=== PATIENT | male | born 1965 | race Caucasian/White ===

== ENCOUNTER 2016-09-04 12:53 | Inpatient (IN) | payer MEDICARE, MEDICAID ==
[~2016-09-04] VITALS: Ht 170.2 cm; Wt 102.0 kg
[~2016-09-04 12:53] MED LIST: ADV250 IH; ALBU8HFA IH; BENZ1TAB10 PO; BUDE10.2 IH; BUPR75TA3 PO; CLOZ100 PO; DOCU250C91 PO; FLUP5 PO; LORA-192 PO; METO-323 PO; PALI234D IM; PANT40TA25 PO; SIMV20TA6 PO
[2016-09-04 14:51] VITALS: BP 128/71
[2016-09-04] MEDS ORDERED: HALOPERIDOL 5 MG TABLET PO PRN (15:15)
[2016-09-04] MEDS ORDERED: INFLUENZA VIRUS VACCINE QVS 2016-17 (3YR+)/PF 60 MCG/0.5 ML SYRINGE IM ONE (15:30)
[2016-09-04] MEDS ORDERED: ALBUTEROL SULFATE HFA 90 MCG/PUFF 8 GM INHALER IH PRN (15:45)
[2016-09-04] MEDS ORDERED: GEMF600T3 PO (15:49)
[2016-09-04] MEDS ORDERED: ZOLP10 PO (15:49)
[2016-09-04] MEDS ORDERED: ACET650T9 PO (15:52)
[2016-09-04] MEDS ORDERED: BUPR-93 PO (15:59)
[2016-09-04] MEDS ORDERED: PNEUMOCOCCAL VACCINE POLYVALENT 0.5 ML VIAL [PPSV23] IM ONE (16:00)
[2016-09-04 16:37] VITALS: BP 117/76
[2016-09-04] MEDS: DOCUSATE SODIUM 250 MG CAPSULE PO SCH (16:50)
[2016-09-04] MEDS: BENZTROPINE MESYLATE 1 MG TABLET PO SCH (16:50)
[2016-09-04] MEDS: PERPHENAZINE 4 MG TABLET PO SCH (16:51)
[2016-09-04] MEDS ORDERED: BUDESONIDE/FORMOTEROL FUMARATE 160-4.5 MCG/PUFF 6.9 GM INHALER IH SCH (17:00)
[2016-09-04] MEDS: SIMVASTATIN 20 MG TABLET PO SCH (20:31)
[2016-09-05 05:53] VITALS: BP 120/82
[2016-09-05] MEDS: PANTOPRAZOLE SODIUM 40 MG DR TABLET PO SCH (06:55)
[2016-09-05 08:20] VITALS: BP_SYST 112; BP_SYST 121; BP_DIAS 66; BP_DIAS 84
[2016-09-05] MEDS: BuPROPion HCL 150 MG SR TABLET PO SCH (08:25)
[2016-09-05] MEDS: BENZTROPINE MESYLATE 1 MG TABLET PO SCH ×2 (08:25→16:41)
[2016-09-05] MEDS: DOCUSATE SODIUM 250 MG CAPSULE PO SCH ×2 (08:25→16:41)
[2016-09-05] MEDS: METOPROLOL SUCCINATE 25 MG ER TABLET PO SCH (08:25)
[2016-09-05] MEDS: PERPHENAZINE 4 MG TABLET PO SCH ×2 (08:26→16:41)
[2016-09-05] MEDS: FLUTICASONE/VILANTEROL 200-25 MCG/INH INHALER [14] IH SCH (08:28)
[2016-09-05 08:49] LABS: BASOPHILS % (AUTO) 0.6 % (0.0-2.0); EOSINOPHILS % (AUTO) 3.5 % (1.0-6.0); HEMATOCRIT 47.3 % (41-53); HEMOGLOBIN 15.5 g/dL (13.5-17.5); LYMPHOCYTES # (AUTO) 1.7 K/uL (1.0-4.8); LYMPHOCYTES % (AUTO) 26.5 % (22.0-44.0); MEAN CORPUSCULAR HEMOGLOBIN 30.2 pg (26.0-34.0); MEAN CORPUSCULAR HGB CONC 32.7 G/dL (31.0-37.0); MEAN CORPUSCULAR VOLUME 92 fL (80-100); MONOCYTES # (AUTO) 0.4 K/uL (0.1-1.0); MONOCYTES % (AUTO) 6.1 % (2.0-9.0); NEUTROPHILS # (AUTO) 4.1 K/uL (1.8-7.7); NEUTROPHILS % (AUTO) 63.3 % (40.0-70.0); PLATELET COUNT (AUTO) 292 K/uL (150-450); RED BLOOD CELL COUNT(AUTO) 5.12 MIL/uL (4.50-5.90); RED CELL DISTRIBUTION WIDTH 12.5 % (11.5-14.5); WHITE BLOOD COUNT (AUTO) 6.4 K/uL (4.5-11.0)
[2016-09-05] MEDS ORDERED: NICOTINE 21 MG/24 HOUR PATCH TD ONE (09:00)
[2016-09-05 09:45] LABS: ALANINE AMINOTRANSFERASE 27 U/L (12-78); ANION GAP 12 mmol/L (8-16); ASPARTATE AMINOTRANSFERASE 13 U/L (15-37); BILIRUBIN,TOTAL 0.3 mg/dL (0.1-1.0); CALCIUM, TOTAL 8.7 mg/dL (8.8-10.5); CARBON DIOXIDE 23 mmol/L (22-29); CHLORIDE 106 mmol/L (98-107); CREATININE 1.07 mg/dL (0.60-1.30); GLOMERULAR FILTR. RATE CALC > 60 mL/min (>60); SODIUM SERUM 141 mmol/L (136-145); TOTAL PROTEIN, SERUM 7.1 g/dL (6.4-8.2); UREA NITROGEN, BLOOD 18 mg/dL (7-18)
[2016-09-05 10:27] LABS: ADD UA MICROSCOPIC NO; APPEARANCE,URINE CLEAR (CLEAR); GLUCOSE, URINE (UA) NEGATIVE (NEGATIVE); KETONES,URINE NEGATIVE (NEGATIVE); LEUKOCYTE ESTERASE ,URINE NEGATIVE (NEGATIVE); OCCULT BLOOD,URINE NEGATIVE (NEGATIVE); PH,URINE 6.5 (5.0-8.0); PROTEIN,URINE NEGATIVE (NEGATIVE)
[2016-09-05 16:13] VITALS: BP 125/82
[2016-09-05] MEDS: ACETAMINOPHEN 325 MG TABLET PO PRN (19:16)
[2016-09-05] MEDS: SIMVASTATIN 20 MG TABLET PO SCH (20:33)
[2016-09-05] MEDS: ZOLPIDEM TARTRATE 10 MG TABLET PO PRN (21:13)
[2016-09-06] VITALS: BP 108/67
[2016-09-06] MEDS: LORazepam 2 MG TABLET PO PRN ×2 (00:04→09:03)
[2016-09-06] MEDS: ACETAMINOPHEN 325 MG TABLET PO PRN ×2 (03:29→21:04)
[2016-09-06] MEDS: PANTOPRAZOLE SODIUM 40 MG DR TABLET PO SCH (06:22)
[2016-09-06 08:12] VITALS: BP 108/72
[2016-09-06] MEDS: DOCUSATE SODIUM 250 MG CAPSULE PO SCH ×2 (08:25→16:35)
[2016-09-06] MEDS: BuPROPion HCL 150 MG SR TABLET PO SCH (08:25)
[2016-09-06] MEDS: BENZTROPINE MESYLATE 1 MG TABLET PO SCH ×2 (08:25→16:35)
[2016-09-06] MEDS: FLUTICASONE/VILANTEROL 200-25 MCG/INH INHALER [14] IH SCH (08:25)
[2016-09-06] MEDS: PERPHENAZINE 4 MG TABLET PO SCH ×2 (08:26→16:35)
[2016-09-06 08:29] VITALS: BP 115/70
[2016-09-06] MEDS: METOPROLOL SUCCINATE 25 MG ER TABLET PO SCH (08:29)
[2016-09-06 16:06] VITALS: BP 109/64
[2016-09-06] MEDS: SIMVASTATIN 20 MG TABLET PO SCH (20:34)
[2016-09-06] MEDS: ZOLPIDEM TARTRATE 10 MG TABLET PO PRN (21:04)
[2016-09-07 03:05] VITALS: BP 103/78
[2016-09-07 05:49] VITALS: BP 110/70
[2016-09-07] MEDS: ACETAMINOPHEN 325 MG TABLET PO PRN (05:56)
[2016-09-07] MEDS: PANTOPRAZOLE SODIUM 40 MG DR TABLET PO SCH (06:28)
[2016-09-07 08:01] VITALS: BP 118/68
[2016-09-07] MEDS: PERPHENAZINE 4 MG TABLET PO SCH ×2 (08:46→16:30)
[2016-09-07] MEDS: BuPROPion HCL 150 MG SR TABLET PO SCH (08:47)
[2016-09-07] MEDS: DOCUSATE SODIUM 250 MG CAPSULE PO SCH ×2 (08:47→16:30)
[2016-09-07] MEDS: METOPROLOL SUCCINATE 25 MG ER TABLET PO SCH (08:47)
[2016-09-07] MEDS: BENZTROPINE MESYLATE 1 MG TABLET PO SCH ×2 (08:47→16:30)
[2016-09-07 08:49] LABS: HEMOGLOBIN A1C 5.7 % (4.5-6.2)
[2016-09-07] MEDS: FLUTICASONE/VILANTEROL 200-25 MCG/INH INHALER [14] IH SCH (08:49)
[2016-09-07] MEDS: LORazepam 2 MG TABLET PO PRN (08:49)
[2016-09-07 09:08] LABS: CHOL/HDL RATIO 3.5 (4.2-7.3); CREATINE KINASE MB 1.4 ng/mL (0-5); CREATINE KINASE, TOTAL 102 U/L (39-308); THYROID STIMULATING HORMONE 1.25 uIU/mL (0.36-3.74)
[2016-09-07] MEDS: NICOTINE 21 MG/24 HOUR PATCH TD SCH (13:27)
[2016-09-07 16:01] VITALS: BP 107/64
[2016-09-07] MEDS: SIMVASTATIN 20 MG TABLET PO SCH (20:39)
[2016-09-08 00:46] VITALS: BP 123/72
[2016-09-08] MEDS: PANTOPRAZOLE SODIUM 40 MG DR TABLET PO SCH (06:44)
[2016-09-08 08:02] VITALS: BP 109/77
[2016-09-08] MEDS: BuPROPion HCL 150 MG SR TABLET PO SCH (09:02)
[2016-09-08] MEDS: BENZTROPINE MESYLATE 1 MG TABLET PO SCH ×2 (09:02→16:49)
[2016-09-08] MEDS: NICOTINE 21 MG/24 HOUR PATCH TD SCH (09:02)
[2016-09-08] MEDS: METOPROLOL SUCCINATE 25 MG ER TABLET PO SCH (09:02)
[2016-09-08] MEDS: DOCUSATE SODIUM 250 MG CAPSULE PO SCH ×2 (09:02→16:49)
[2016-09-08] MEDS: FLUTICASONE/VILANTEROL 200-25 MCG/INH INHALER [14] IH SCH (09:04)
[2016-09-08] MEDS: PERPHENAZINE 4 MG TABLET PO SCH ×2 (10:13→16:50)
[2016-09-08 16:04] VITALS: BP 103/63
[2016-09-08 16:15] LABS: HEPATITIS Bs ANTIGEN SCREEN P Negative (Negative); HEPATITIS C AB SCREEN <0.1 s/co ratio (0.0-0.9)
[2016-09-08] MEDS: SIMVASTATIN 20 MG TABLET PO SCH (20:39)
[2016-09-08] MEDS: ZOLPIDEM TARTRATE 10 MG TABLET PO PRN (20:54)
[2016-09-09 04:39] VITALS: BP 122/88
[2016-09-09] MEDS: LORazepam 2 MG TABLET PO PRN (05:10)
[2016-09-09] MEDS: ACETAMINOPHEN 325 MG TABLET PO PRN (05:10)
[2016-09-09] MEDS: PANTOPRAZOLE SODIUM 40 MG DR TABLET PO SCH (06:35)
[2016-09-09 08:20] VITALS: BP 120/70
[2016-09-09] MEDS: BENZTROPINE MESYLATE 1 MG TABLET PO SCH ×2 (08:52→16:10)
[2016-09-09] MEDS: METOPROLOL SUCCINATE 25 MG ER TABLET PO SCH (08:52)
[2016-09-09] MEDS: DOCUSATE SODIUM 250 MG CAPSULE PO SCH ×2 (08:52→16:10)
[2016-09-09] MEDS: PERPHENAZINE 4 MG TABLET PO SCH ×2 (08:52→16:10)
[2016-09-09] MEDS: BuPROPion HCL 150 MG SR TABLET PO SCH (08:52)
[2016-09-09] MEDS: FLUTICASONE/VILANTEROL 200-25 MCG/INH INHALER [14] IH SCH (08:52)
[2016-09-09] MEDS: NICOTINE 21 MG/24 HOUR PATCH TD SCH (08:54)
[2016-09-09] MEDS: MAG HYDROX/AL HYDROX/SIMETH 30 ML SUSP UDCUP PO PRN (12:42)
[2016-09-09 16:03] VITALS: BP 117/61
[2016-09-09] MEDS: SIMVASTATIN 20 MG TABLET PO SCH (20:07)
[2016-09-10 00:01] VITALS: BP 110/69
[2016-09-10] MEDS: PANTOPRAZOLE SODIUM 40 MG DR TABLET PO SCH (06:30)
[2016-09-10 08:24] VITALS: BP 118/67
[2016-09-10] MEDS: DOCUSATE SODIUM 250 MG CAPSULE PO SCH ×2 (08:29→16:31)
[2016-09-10] MEDS: BENZTROPINE MESYLATE 1 MG TABLET PO SCH ×2 (08:29→16:31)
[2016-09-10] MEDS: BuPROPion HCL 150 MG SR TABLET PO SCH (08:29)
[2016-09-10] MEDS: NICOTINE 21 MG/24 HOUR PATCH TD SCH (08:29)
[2016-09-10] MEDS: METOPROLOL SUCCINATE 25 MG ER TABLET PO SCH (08:29)
[2016-09-10] MEDS: PERPHENAZINE 4 MG TABLET PO SCH ×2 (08:29→16:31)
[2016-09-10] MEDS: FLUTICASONE/VILANTEROL 200-25 MCG/INH INHALER [14] IH SCH (08:30)
[2016-09-10 16:00] VITALS: BP 116/60
[2016-09-10] MEDS: SIMVASTATIN 20 MG TABLET PO SCH (20:32)
[2016-09-11 02:12] VITALS: BP 121/74
[2016-09-11] MEDS: LORazepam 2 MG TABLET PO PRN (02:13)
[2016-09-11] MEDS: PANTOPRAZOLE SODIUM 40 MG DR TABLET PO SCH (07:02)
[2016-09-11 08:23] VITALS: BP 97/61
[2016-09-11 09:20] VITALS: BP 107/69
[2016-09-11] MEDS: METOPROLOL SUCCINATE 25 MG ER TABLET PO SCH (09:20)
[2016-09-11] MEDS: BENZTROPINE MESYLATE 1 MG TABLET PO SCH ×2 (09:20→16:32)
[2016-09-11] MEDS: DOCUSATE SODIUM 250 MG CAPSULE PO SCH ×2 (09:20→16:32)
[2016-09-11] MEDS: PERPHENAZINE 4 MG TABLET PO SCH ×2 (09:20→16:32)
[2016-09-11] MEDS: NICOTINE 21 MG/24 HOUR PATCH TD SCH (09:21)
[2016-09-11] MEDS: BuPROPion HCL 150 MG SR TABLET PO SCH (09:21)
[2016-09-11] MEDS: FLUTICASONE/VILANTEROL 200-25 MCG/INH INHALER [14] IH SCH (09:21)
[2016-09-11] MEDS: ACETAMINOPHEN 325 MG TABLET PO PRN ×2 (12:56→19:23)
[2016-09-11 16:14] VITALS: BP 109/69
[2016-09-11] MEDS: MAG HYDROX/AL HYDROX/SIMETH 30 ML SUSP UDCUP PO PRN (17:48)
[2016-09-11] MEDS: SIMVASTATIN 20 MG TABLET PO SCH (20:34)
[2016-09-12 02:00] VITALS: BP 121/73
[2016-09-12] MEDS: ZOLPIDEM TARTRATE 10 MG TABLET PO PRN (02:28)
[2016-09-12 03:38] VITALS: BP 102/70
[2016-09-12] MEDS: LORazepam 2 MG TABLET PO PRN (03:41)
[2016-09-12] MEDS: PANTOPRAZOLE SODIUM 40 MG DR TABLET PO SCH (06:39)
[2016-09-12 08:03] VITALS: BP 107/66
[2016-09-12] MEDS: NICOTINE 21 MG/24 HOUR PATCH TD SCH (08:26)
[2016-09-12] MEDS: DOCUSATE SODIUM 250 MG CAPSULE PO SCH ×2 (08:29→17:54)
[2016-09-12] MEDS: BENZTROPINE MESYLATE 1 MG TABLET PO SCH ×2 (08:29→17:54)
[2016-09-12] MEDS: FLUTICASONE/VILANTEROL 200-25 MCG/INH INHALER [14] IH SCH (08:29)
[2016-09-12] MEDS: PERPHENAZINE 4 MG TABLET PO SCH ×2 (08:30→17:54)
[2016-09-12] MEDS: METOPROLOL SUCCINATE 25 MG ER TABLET PO SCH (09:00)
[2016-09-12] MEDS: BuPROPion HCL 150 MG SR TABLET PO SCH (09:00)
[2016-09-12 16:00] VITALS: BP 125/68
[2016-09-12] MEDS: ACETAMINOPHEN 325 MG TABLET PO PRN (20:19)
[2016-09-12] MEDS: SIMVASTATIN 20 MG TABLET PO SCH (20:33)
[2016-09-13 05:50] VITALS: BP 104/81
[2016-09-13] MEDS: PANTOPRAZOLE SODIUM 40 MG DR TABLET PO SCH (06:06)
[2016-09-13] MEDS: DOCUSATE SODIUM 250 MG CAPSULE PO SCH ×2 (08:45→16:32)
[2016-09-13] MEDS: BENZTROPINE MESYLATE 1 MG TABLET PO SCH ×2 (08:45→16:32)
[2016-09-13] MEDS: METOPROLOL SUCCINATE 25 MG ER TABLET PO SCH (08:46)
[2016-09-13] MEDS: PERPHENAZINE 4 MG TABLET PO SCH ×2 (08:46→16:32)
[2016-09-13] MEDS: NICOTINE 21 MG/24 HOUR PATCH TD SCH (08:46)
[2016-09-13] MEDS: FLUTICASONE/VILANTEROL 200-25 MCG/INH INHALER [14] IH SCH (08:47)
[2016-09-13] MEDS: BuPROPion HCL 150 MG SR TABLET PO SCH (08:47)
[2016-09-13 08:59] VITALS: BP 123/76
[2016-09-13 16:01] VITALS: BP 109/67
[2016-09-13] MEDS: MAG HYDROX/AL HYDROX/SIMETH 30 ML SUSP UDCUP PO PRN (20:33)
[2016-09-13] MEDS: SIMVASTATIN 20 MG TABLET PO SCH (20:34)
[2016-09-14 03:06] VITALS: BP 120/70
[2016-09-14] MEDS: PANTOPRAZOLE SODIUM 40 MG DR TABLET PO SCH (06:42)
[2016-09-14 08:38] VITALS: BP 118/65
[2016-09-14] MEDS ORDERED: BISACODYL 5 MG EC TABLET PO PRN (09:15)
[2016-09-14] MEDS: METOPROLOL SUCCINATE 25 MG ER TABLET PO SCH (09:22)
[2016-09-14] MEDS: BENZTROPINE MESYLATE 1 MG TABLET PO SCH ×2 (09:22→16:05)
[2016-09-14] MEDS: PERPHENAZINE 4 MG TABLET PO SCH ×2 (09:22→16:06)
[2016-09-14] MEDS: DOCUSATE SODIUM 250 MG CAPSULE PO SCH ×2 (09:22→16:05)
[2016-09-14] MEDS: BuPROPion HCL 150 MG SR TABLET PO SCH (09:22)
[2016-09-14] MEDS: NICOTINE 21 MG/24 HOUR PATCH TD SCH (09:23)
[2016-09-14] MEDS: FLUTICASONE/VILANTEROL 200-25 MCG/INH INHALER [14] IH SCH (09:24)
[2016-09-14 16:15] VITALS: BP 111/65
[2016-09-14] MEDS: SIMVASTATIN 20 MG TABLET PO SCH (20:12)
[2016-09-15 02:04] VITALS: BP 104/64
[2016-09-15 05:44] VITALS: BP 104/87
[2016-09-15] MEDS: ACETAMINOPHEN 325 MG TABLET PO PRN (05:53)
[2016-09-15] MEDS: PANTOPRAZOLE SODIUM 40 MG DR TABLET PO SCH (06:23)
[2016-09-15 08:30] VITALS: BP 112/61
[2016-09-15] MEDS: PERPHENAZINE 4 MG TABLET PO SCH ×2 (08:39→16:06)
[2016-09-15] MEDS: BENZTROPINE MESYLATE 1 MG TABLET PO SCH ×2 (08:39→16:06)
[2016-09-15] MEDS: DOCUSATE SODIUM 250 MG CAPSULE PO SCH ×2 (08:39→16:06)
[2016-09-15] MEDS: BuPROPion HCL 150 MG SR TABLET PO SCH (08:39)
[2016-09-15] MEDS: METOPROLOL SUCCINATE 25 MG ER TABLET PO SCH (08:40)
[2016-09-15] MEDS: NICOTINE 21 MG/24 HOUR PATCH TD SCH (08:41)
[2016-09-15] MEDS: FLUTICASONE/VILANTEROL 200-25 MCG/INH INHALER [14] IH SCH (08:41)
[2016-09-15 16:03] VITALS: BP 113/67
[2016-09-15] MEDS: SIMVASTATIN 20 MG TABLET PO SCH (20:06)
[2016-09-16 00:54] VITALS: BP 115/88
[2016-09-16] MEDS: ZOLPIDEM TARTRATE 10 MG TABLET PO PRN ×2 (01:37→21:35)
[2016-09-16 04:18] VITALS: BP 123/84
[2016-09-16] MEDS: ACETAMINOPHEN 325 MG TABLET PO PRN ×3 (05:09→23:32)
[2016-09-16] MEDS: PANTOPRAZOLE SODIUM 40 MG DR TABLET PO SCH (06:43)
[2016-09-16 08:16] VITALS: BP 103/60
[2016-09-16] MEDS: FLUTICASONE/VILANTEROL 200-25 MCG/INH INHALER [14] IH SCH (08:35)
[2016-09-16] MEDS: BENZTROPINE MESYLATE 1 MG TABLET PO SCH ×2 (08:35→16:08)
[2016-09-16] MEDS: METOPROLOL SUCCINATE 25 MG ER TABLET PO SCH (08:35)
[2016-09-16] MEDS: BuPROPion HCL 150 MG SR TABLET PO SCH (08:35)
[2016-09-16] MEDS: DOCUSATE SODIUM 250 MG CAPSULE PO SCH ×2 (08:36→16:08)
[2016-09-16] MEDS: PERPHENAZINE 4 MG TABLET PO SCH ×2 (08:36→16:08)
[2016-09-16] MEDS: NICOTINE 21 MG/24 HOUR PATCH TD SCH (08:36)
[2016-09-16 12:05] VITALS: BP 100/69
[2016-09-16 16:01] VITALS: BP 117/76
[2016-09-16] MEDS: SIMVASTATIN 20 MG TABLET PO SCH (20:24)
[2016-09-17 03:00] VITALS: BP 111/70
[2016-09-17] MEDS: PANTOPRAZOLE SODIUM 40 MG DR TABLET PO SCH (06:32)
[2016-09-17 08:02] VITALS: BP 123/70
[2016-09-17] MEDS: PERPHENAZINE 4 MG TABLET PO SCH ×2 (09:11→16:37)
[2016-09-17] MEDS: BuPROPion HCL 150 MG SR TABLET PO SCH (09:11)
[2016-09-17] MEDS: FLUTICASONE/VILANTEROL 200-25 MCG/INH INHALER [14] IH SCH (09:12)
[2016-09-17] MEDS: NICOTINE 21 MG/24 HOUR PATCH TD SCH (09:12)
[2016-09-17] MEDS: BENZTROPINE MESYLATE 1 MG TABLET PO SCH ×2 (09:14→17:04)
[2016-09-17] MEDS: METOPROLOL SUCCINATE 25 MG ER TABLET PO SCH (09:14)
[2016-09-17] MEDS: DOCUSATE SODIUM 250 MG CAPSULE PO SCH ×2 (09:14→16:37)
[2016-09-17 16:08] VITALS: BP 128/85
[2016-09-17] MEDS: SIMVASTATIN 20 MG TABLET PO SCH (20:34)
[2016-09-17 21:04] VITALS: BP 122/80
[2016-09-17] MEDS: ACETAMINOPHEN 325 MG TABLET PO PRN (21:08)
[2016-09-18 00:01] VITALS: BP 108/75
[2016-09-18] MEDS: ZOLPIDEM TARTRATE 10 MG TABLET PO PRN (02:50)
[2016-09-18] MEDS: LORazepam 2 MG TABLET PO PRN (02:51)
[2016-09-18] MEDS: PANTOPRAZOLE SODIUM 40 MG DR TABLET PO SCH (06:19)
[2016-09-18 08:16] VITALS: BP 115/73
[2016-09-18] MEDS: PERPHENAZINE 4 MG TABLET PO SCH (08:44)
[2016-09-18] MEDS: METOPROLOL SUCCINATE 25 MG ER TABLET PO SCH (08:44)
[2016-09-18] MEDS: BuPROPion HCL 150 MG SR TABLET PO SCH (08:44)
[2016-09-18] MEDS: FLUTICASONE/VILANTEROL 200-25 MCG/INH INHALER [14] IH SCH (08:44)
[2016-09-18] MEDS: DOCUSATE SODIUM 250 MG CAPSULE PO SCH (08:44)
[2016-09-18] MEDS: BENZTROPINE MESYLATE 1 MG TABLET PO SCH (08:44)
[2016-09-18] MEDS: NICOTINE 21 MG/24 HOUR PATCH TD SCH (08:45)
[2016-09-18] MEDS ORDERED: TRIL2 PO (09:44)
[2016-09-18] MEDS ORDERED: PANT40TA25 PO (09:44)
[2016-09-18] MEDS ORDERED: METO-323 PO (09:45)
[2016-09-18] MEDS ORDERED: FLUT1BLS PO (09:45)
== END 2016-09-18 10:00 | disposition home or self-care (01) | DRG 885 ==
LOC: B2X 15:19
PROVIDERS: ADMIT Psychiatry & Neurology Child & Adolescent Psychiatry; ATTEND Psychiatry & Neurology Child & Adolescent Psychiatry
DX: F20.0 Paranoid schizophrenia (principal); E03.9 Hypothyroidism, unspecified; E55.9 Vitamin D deficiency, unspecified; E78.00 Pure hypercholesterolemia, unspecified; E78.5 Hyperlipidemia, unspecified; E87.6 Hypokalemia; I10 Essential (primary) hypertension; J44.9 Chronic obstructive pulmonary disease, unspecified; K21.9 Gastro-esophageal reflux disease without esophagitis; K59.00 Constipation, unspecified; F17.210 Nicotine dependence, cigarettes, uncomplicated; I95.9 Hypotension, unspecified; Z59.0 Homelessness; Z98.890 Other specified postprocedural states; Z79.899 Other long term (current) drug therapy; Z79.51 Long term (current) use of inhaled steroids; Z28.21 Immunization not carried out because of patient refusal; Z84.89 Family history of other specified conditions
CPT/HCPCS: 80074; 80307; 82306; 82607; 82746; 83036; 83735; 84439; 84443; 86592

== ENCOUNTER 2016-11-27 13:01 | Inpatient (IN) | payer MEDICARE, MEDICAID ==
[~2016-11-27] VITALS: Ht 188 cm; Wt 97.9 kg
[~2016-11-27 13:01] MED LIST changes: -ADV250 IH; -ALBU8HFA IH; -BUDE10.2 IH; +BUPR-93 PO; -BUPR75TA3 PO; -CLOZ100 PO; -FLUP5 PO; +FLUT1BLS PO; -LORA-192 PO; -PALI234D IM; +TRIL2 PO
[2016-11-27 18:36] VITALS: BP 142/82
[2016-11-27] MEDS ORDERED: PNEUMOCOCCAL VACCINE POLYVALENT 0.5 ML VIAL [PPSV23] IM ONE (19:00)
[2016-11-27] MEDS ORDERED: SIMVASTATIN 20 MG TABLET PO SCH ×2 (21:00)
[2016-11-27] MEDS: LORazepam 2 MG TABLET PO PRN (23:57)
[2016-11-27] MEDS: ZOLPIDEM TARTRATE 10 MG TABLET PO PRN (23:57)
[2016-11-28 01:03] VITALS: BP 126/77
[2016-11-28] MEDS: PANTOPRAZOLE SODIUM 40 MG DR TABLET PO SCH (06:26)
[2016-11-28 08:08] VITALS: BP 125/71
[2016-11-28 08:19] LABS: HEMOGLOBIN A1C 6.1 % (4.5-6.2)
[2016-11-28 08:30] LABS: BASOPHILS % (AUTO) 0.5 % (0.0-2.0); EOSINOPHILS % (AUTO) 2.5 % (1.0-6.0); HEMATOCRIT 48.5 % (41-53); HEMOGLOBIN 15.5 g/dL (13.5-17.5); LYMPHOCYTES % (AUTO) 22.5 % (22.0-44.0); MEAN CORPUSCULAR HEMOGLOBIN 29.3 pg (26.0-34.0); MEAN CORPUSCULAR VOLUME 92 fL (80-100); MONOCYTES # (AUTO) 0.6 K/uL (0.1-1.0); MONOCYTES % (AUTO) 6.3 % (2.0-9.0); NEUTROPHILS # (AUTO) 6.2 K/uL (1.8-7.7); NEUTROPHILS % (AUTO) 68.2 % (40.0-70.0); PLATELET COUNT (AUTO) 370 K/uL (150-450); RED CELL DISTRIBUTION WIDTH 13.3 % (11.5-14.5)
[2016-11-28 08:47] LABS: ALANINE AMINOTRANSFERASE 38 U/L (12-78); ALBUMIN 4.3 g/dL (3.4-5.0); ANION GAP 9 mmol/L (8-16); ASPARTATE AMINOTRANSFERASE 25 U/L (15-37); BILIRUBIN,TOTAL 0.3 mg/dL (0.1-1.0); CALCIUM, TOTAL 8.9 mg/dL (8.8-10.5); CARBON DIOXIDE 26 mmol/L (22-29); CHLORIDE 102 mmol/L (98-107); CHOL/HDL RATIO 4.5 (4.2-7.3); CREATININE 1.04 mg/dL (0.60-1.30); GLOMERULAR FILTR. RATE CALC > 60 mL/min (>60); POTASSIUM 3.9 mmol/L (3.5-5.1); SODIUM SERUM 137 mmol/L (136-145); THYROID STIMULATING HORMONE 1.39 uIU/mL (0.36-3.74); TOTAL PROTEIN, SERUM 7.5 g/dL (6.4-8.2); UREA NITROGEN, BLOOD 19 mg/dL (7-18)
[2016-11-28] MEDS: DOCUSATE SODIUM 250 MG CAPSULE PO SCH ×2 (09:03→16:32)
[2016-11-28] MEDS: FLUTICASONE/VILANTEROL 200-25 MCG/INH INHALER [14] IH SCH (09:03)
[2016-11-28] MEDS: METOPROLOL SUCCINATE 25 MG ER TABLET PO SCH (09:03)
[2016-11-28] MEDS: NYSTATIN 15 GM POWDER BOTTLE TP SCH ×2 (09:05→16:33)
[2016-11-28] MEDS: LORazepam 2 MG TABLET PO PRN ×2 (09:57→16:33)
[2016-11-28 16:00] VITALS: BP 124/78
[2016-11-28] MEDS: OLANZapine 10 MG TABLET PO SCH ×2 (16:33→20:12)
[2016-11-28] MEDS: SIMVASTATIN 20 MG TABLET PO SCH (20:12)
[2016-11-29 01:16] VITALS: BP 116/70
[2016-11-29] MEDS: PANTOPRAZOLE SODIUM 40 MG DR TABLET PO SCH (06:11)
[2016-11-29 08:27] VITALS: BP 124/84
[2016-11-29] MEDS: FLUTICASONE/VILANTEROL 200-25 MCG/INH INHALER [14] IH SCH (08:35)
[2016-11-29] MEDS: DOCUSATE SODIUM 250 MG CAPSULE PO SCH ×2 (08:36→16:02)
[2016-11-29] MEDS: OLANZapine 10 MG TABLET PO SCH ×3 (08:37→20:26)
[2016-11-29] MEDS: METOPROLOL SUCCINATE 25 MG ER TABLET PO SCH (08:37)
[2016-11-29] MEDS: NYSTATIN 15 GM POWDER BOTTLE TP SCH ×2 (08:38→16:03)
[2016-11-29 16:00] VITALS: BP 123/69
[2016-11-29] MEDS: LORazepam 2 MG TABLET PO PRN ×2 (16:02→20:27)
[2016-11-29] MEDS: ZOLPIDEM TARTRATE 10 MG TABLET PO PRN (20:27)
[2016-11-29] MEDS: SIMVASTATIN 20 MG TABLET PO SCH (20:27)
[2016-11-30 05:07] VITALS: BP 128/75
[2016-11-30] MEDS: PANTOPRAZOLE SODIUM 40 MG DR TABLET PO SCH (06:06)
[2016-11-30] MEDS: LORazepam 2 MG TABLET PO PRN ×2 (08:02→12:53)
[2016-11-30] MEDS: NICOTINE 21 MG/24 HOUR PATCH TD SCH (08:02)
[2016-11-30] MEDS: METOPROLOL SUCCINATE 25 MG ER TABLET PO SCH (08:02)
[2016-11-30] MEDS: OLANZapine 10 MG TABLET PO SCH ×3 (08:03→20:43)
[2016-11-30] MEDS: FLUTICASONE/VILANTEROL 200-25 MCG/INH INHALER [14] IH SCH (08:03)
[2016-11-30] MEDS: NYSTATIN 15 GM POWDER BOTTLE TP SCH ×2 (08:03→16:37)
[2016-11-30] MEDS: DOCUSATE SODIUM 250 MG CAPSULE PO SCH ×2 (08:03→16:36)
[2016-11-30 09:05] VITALS: BP 115/80
[2016-11-30 16:06] VITALS: BP 137/76
[2016-11-30] MEDS: SIMVASTATIN 20 MG TABLET PO SCH (20:44)
[2016-11-30] MEDS: ZOLPIDEM TARTRATE 10 MG TABLET PO PRN (21:05)
[2016-12-01 02:20] VITALS: BP 137/85
[2016-12-01] MEDS: LORazepam 2 MG TABLET PO PRN ×4 (02:21→20:37)
[2016-12-01] MEDS: PANTOPRAZOLE SODIUM 40 MG DR TABLET PO SCH (06:10)
[2016-12-01 08:06] VITALS: BP 129/67
[2016-12-01] MEDS: FLUTICASONE/VILANTEROL 200-25 MCG/INH INHALER [14] IH SCH (08:15)
[2016-12-01] MEDS: OLANZapine 10 MG TABLET PO SCH ×3 (08:16→20:37)
[2016-12-01] MEDS: NYSTATIN 15 GM POWDER BOTTLE TP SCH ×2 (08:16→16:46)
[2016-12-01] MEDS: NICOTINE 21 MG/24 HOUR PATCH TD SCH (08:16)
[2016-12-01] MEDS: DOCUSATE SODIUM 250 MG CAPSULE PO SCH ×2 (08:16→16:46)
[2016-12-01] MEDS: METOPROLOL SUCCINATE 25 MG ER TABLET PO SCH (08:16)
[2016-12-01 16:00] VITALS: BP 118/83
[2016-12-01] MEDS: SIMVASTATIN 20 MG TABLET PO SCH (20:36)
[2016-12-02 04:16] VITALS: BP 125/72
[2016-12-02] MEDS: PANTOPRAZOLE SODIUM 40 MG DR TABLET PO SCH (06:20)
[2016-12-02 08:08] VITALS: BP 120/68
[2016-12-02] MEDS: FLUTICASONE/VILANTEROL 200-25 MCG/INH INHALER [14] IH SCH (08:15)
[2016-12-02] MEDS: OLANZapine 10 MG TABLET PO SCH ×3 (08:16→20:45)
[2016-12-02] MEDS: DOCUSATE SODIUM 250 MG CAPSULE PO SCH ×2 (08:16→16:37)
[2016-12-02] MEDS: METOPROLOL SUCCINATE 25 MG ER TABLET PO SCH (08:16)
[2016-12-02] MEDS: NICOTINE 21 MG/24 HOUR PATCH TD SCH (08:16)
[2016-12-02] MEDS: LORazepam 2 MG TABLET PO PRN ×3 (08:16→20:46)
[2016-12-02] MEDS: NYSTATIN 15 GM POWDER BOTTLE TP SCH ×2 (08:17→16:37)
[2016-12-02 16:00] VITALS: BP 130/75
[2016-12-02] MEDS ORDERED: MAG HYDROX/AL HYDROX/SIMETH ES 30 ML SUSPENSION UDCUP PO PRN (18:15)
[2016-12-02] MEDS: SIMVASTATIN 20 MG TABLET PO SCH (20:45)
[2016-12-02] MEDS: ZOLPIDEM TARTRATE 10 MG TABLET PO PRN (21:45)
[2016-12-03 00:39] VITALS: BP 129/82
[2016-12-03] MEDS: PANTOPRAZOLE SODIUM 40 MG DR TABLET PO SCH ×2 (06:28→16:18)
[2016-12-03] MEDS: FLUTICASONE/VILANTEROL 200-25 MCG/INH INHALER [14] IH SCH (08:28)
[2016-12-03] MEDS: LORazepam 2 MG TABLET PO PRN ×3 (08:30→21:27)
[2016-12-03] MEDS: METOPROLOL SUCCINATE 25 MG ER TABLET PO SCH (08:30)
[2016-12-03] MEDS: OLANZapine 10 MG TABLET PO SCH ×3 (08:30→20:44)
[2016-12-03] MEDS: DOCUSATE SODIUM 250 MG CAPSULE PO SCH ×2 (08:30→16:43)
[2016-12-03] MEDS: NYSTATIN 15 GM POWDER BOTTLE TP SCH (08:31)
[2016-12-03] MEDS: NICOTINE 21 MG/24 HOUR PATCH TD SCH (08:31)
[2016-12-03 08:33] VITALS: BP 134/77
[2016-12-03 16:00] VITALS: BP 118/72
[2016-12-03] MEDS: SIMVASTATIN 20 MG TABLET PO SCH (20:45)
[2016-12-03] MEDS: ZOLPIDEM TARTRATE 10 MG TABLET PO PRN (21:26)
[2016-12-04 04:57] VITALS: BP 126/87
[2016-12-04] MEDS: PANTOPRAZOLE SODIUM 40 MG DR TABLET PO SCH ×2 (06:22→16:30)
[2016-12-04] MEDS: OLANZapine 10 MG TABLET PO SCH ×3 (08:14→19:59)
[2016-12-04] MEDS: METOPROLOL SUCCINATE 25 MG ER TABLET PO SCH (08:14)
[2016-12-04] MEDS: FLUTICASONE/VILANTEROL 200-25 MCG/INH INHALER [14] IH SCH (08:14)
[2016-12-04] MEDS: NICOTINE 21 MG/24 HOUR PATCH TD SCH (08:14)
[2016-12-04] MEDS: LORazepam 2 MG TABLET PO PRN (08:14)
[2016-12-04] MEDS: DOCUSATE SODIUM 250 MG CAPSULE PO SCH ×2 (08:14→16:30)
[2016-12-04] MEDS ORDERED: NYSTATIN 15 GM POWDER BOTTLE TP PRN (09:00)
[2016-12-04 09:07] VITALS: BP 127/66
[2016-12-04] MEDS ORDERED: BISACODYL 5 MG EC TABLET PO PRN (09:30)
[2016-12-04 16:07] VITALS: BP 124/76
[2016-12-04] MEDS: SIMVASTATIN 20 MG TABLET PO SCH (19:59)
[2016-12-05 01:08] VITALS: BP 123/71
[2016-12-05] MEDS: PANTOPRAZOLE SODIUM 40 MG DR TABLET PO SCH ×2 (06:48→16:23)
[2016-12-05 08:21] VITALS: BP 119/71
[2016-12-05] MEDS: METOPROLOL SUCCINATE 25 MG ER TABLET PO SCH (09:40)
[2016-12-05] MEDS: LORazepam 2 MG TABLET PO PRN (09:40)
[2016-12-05] MEDS: DOCUSATE SODIUM 250 MG CAPSULE PO SCH ×2 (09:40→16:23)
[2016-12-05] MEDS: OLANZapine 10 MG TABLET PO SCH ×3 (09:41→20:27)
[2016-12-05] MEDS: NICOTINE 21 MG/24 HOUR PATCH TD SCH (09:41)
[2016-12-05] MEDS: FLUTICASONE/VILANTEROL 200-25 MCG/INH INHALER [14] IH SCH (09:42)
[2016-12-05] MEDS: SIMVASTATIN 20 MG TABLET PO SCH (20:27)
[2016-12-05] MEDS: ZOLPIDEM TARTRATE 10 MG TABLET PO PRN (20:28)
[2016-12-06] VITALS (7 sets, daily range): BP systolic 112–138; BP diastolic 67–77
[2016-12-06] MEDS: PANTOPRAZOLE SODIUM 40 MG DR TABLET PO SCH ×2 (06:25→16:31)
[2016-12-06] MEDS: FLUTICASONE/VILANTEROL 200-25 MCG/INH INHALER [14] IH SCH (09:00)
[2016-12-06] MEDS: NICOTINE 21 MG/24 HOUR PATCH TD SCH (09:00)
[2016-12-06] MEDS: DOCUSATE SODIUM 250 MG CAPSULE PO SCH ×2 (09:01→16:31)
[2016-12-06] MEDS: METOPROLOL SUCCINATE 25 MG ER TABLET PO SCH (09:01)
[2016-12-06] MEDS: OLANZapine 10 MG TABLET PO SCH ×3 (09:01→20:27)
[2016-12-06] MEDS: LORazepam 2 MG TABLET PO PRN ×2 (09:02→16:31)
[2016-12-06] MEDS: SIMVASTATIN 20 MG TABLET PO SCH (20:27)
[2016-12-07 00:20] VITALS: BP 140/86
[2016-12-07] MEDS: PANTOPRAZOLE SODIUM 40 MG DR TABLET PO SCH ×2 (06:43→16:43)
[2016-12-07 08:26] VITALS: BP 131/70
[2016-12-07] MEDS: NICOTINE 21 MG/24 HOUR PATCH TD SCH (08:45)
[2016-12-07] MEDS: FLUTICASONE/VILANTEROL 200-25 MCG/INH INHALER [14] IH SCH (08:45)
[2016-12-07] MEDS: OLANZapine 10 MG TABLET PO SCH ×3 (08:46→20:42)
[2016-12-07] MEDS: DOCUSATE SODIUM 250 MG CAPSULE PO SCH ×2 (08:46→16:43)
[2016-12-07] MEDS: METOPROLOL SUCCINATE 25 MG ER TABLET PO SCH (08:46)
[2016-12-07 16:25] VITALS: BP 135/74
[2016-12-07] MEDS: SIMVASTATIN 20 MG TABLET PO SCH (20:42)
[2016-12-08 06:31] VITALS: BP 116/92
[2016-12-08] MEDS: PANTOPRAZOLE SODIUM 40 MG DR TABLET PO SCH ×2 (06:44→16:44)
[2016-12-08 08:37] VITALS: BP 106/63
[2016-12-08] MEDS: METOPROLOL SUCCINATE 25 MG ER TABLET PO SCH (08:48)
[2016-12-08] MEDS: DOCUSATE SODIUM 250 MG CAPSULE PO SCH ×2 (08:48→16:44)
[2016-12-08] MEDS: FLUTICASONE/VILANTEROL 200-25 MCG/INH INHALER [14] IH SCH (08:48)
[2016-12-08] MEDS: OLANZapine 10 MG TABLET PO SCH ×3 (08:48→20:22)
[2016-12-08] MEDS: NICOTINE 21 MG/24 HOUR PATCH TD SCH (08:48)
[2016-12-08 16:37] VITALS: BP 134/67
[2016-12-08] MEDS: SIMVASTATIN 20 MG TABLET PO SCH (20:22)
[2016-12-09 05:15] VITALS: BP 118/74
[2016-12-09] MEDS: PANTOPRAZOLE SODIUM 40 MG DR TABLET PO SCH ×2 (06:31→16:03)
[2016-12-09] MEDS: NICOTINE 21 MG/24 HOUR PATCH TD SCH (08:21)
[2016-12-09] MEDS: DOCUSATE SODIUM 250 MG CAPSULE PO SCH ×2 (08:21→16:03)
[2016-12-09] MEDS: METOPROLOL SUCCINATE 25 MG ER TABLET PO SCH (08:21)
[2016-12-09] MEDS: FLUTICASONE/VILANTEROL 200-25 MCG/INH INHALER [14] IH SCH (08:21)
[2016-12-09] MEDS: OLANZapine 10 MG TABLET PO SCH ×3 (08:21→20:14)
[2016-12-09 09:20] VITALS: BP 140/91
[2016-12-09 16:17] VITALS: BP 117/63
[2016-12-09] MEDS: SIMVASTATIN 20 MG TABLET PO SCH (20:14)
[2016-12-10 01:00] VITALS: BP 140/88
[2016-12-10] MEDS: PANTOPRAZOLE SODIUM 40 MG DR TABLET PO SCH (06:23)
[2016-12-10 08:51] VITALS: BP 141/89
[2016-12-10] MEDS: DOCUSATE SODIUM 250 MG CAPSULE PO SCH (09:48)
[2016-12-10] MEDS: FLUTICASONE/VILANTEROL 200-25 MCG/INH INHALER [14] IH SCH (09:48)
[2016-12-10] MEDS: METOPROLOL SUCCINATE 25 MG ER TABLET PO SCH (09:50)
[2016-12-10] MEDS: OLANZapine 10 MG TABLET PO SCH (09:50)
[2016-12-10] MEDS: NICOTINE 21 MG/24 HOUR PATCH TD SCH (09:52)
[2016-12-10] MEDS ORDERED: OLAN10TA3 PO ×2 (11:21)
== END 2016-12-10 13:40 | disposition home or self-care (01) | DRG 885 ==
LOC: B3A 17:12 → EDSTATUS 17:46 → B3A 19:36 → B2S 12-06 22:46
PROVIDERS: ADMIT Psychiatry & Neurology Child & Adolescent Psychiatry
DX: F25.0 Schizoaffective disorder, bipolar type (principal); I10 Essential (primary) hypertension; E78.5 Hyperlipidemia, unspecified; K21.9 Gastro-esophageal reflux disease without esophagitis; J44.9 Chronic obstructive pulmonary disease, unspecified; E55.9 Vitamin D deficiency, unspecified; K59.00 Constipation, unspecified; L30.9 Dermatitis, unspecified; F70 Mild intellectual disabilities; R79.89 Other specified abnormal findings of blood chemistry; J45.909 Unspecified asthma, uncomplicated; E66.9 Obesity, unspecified; S01.112A Laceration without foreign body of left eyelid and periocular area, initial encounter; Y08.89XA Assault by other specified means, initial encounter; Y92.239 Unspecified place in hospital as the place of occurrence of the external cause; S00.31XA Abrasion of nose, initial encounter; Z68.27 Body mass index [BMI] 27.0-27.9, adult
CPT/HCPCS: 83036; 84439; 84443

== ENCOUNTER 2016-12-06 20:52 | Emergency (ER) | payer MEDICARE, OTHER ==
[~2016-12-06] VITALS: Ht 177.8 cm; Wt 97.7 kg
[2016-12-06 22:46] VITALS: BP 128/81
== END 2016-12-06 22:57 | disposition home or self-care (01) ==
LOC: EMS 20:54
DX: S01.112A Laceration without foreign body of left eyelid and periocular area, initial encounter (principal); S00.31XA Abrasion of nose, initial encounter; F17.200 Nicotine dependence, unspecified, uncomplicated; K21.9 Gastro-esophageal reflux disease without esophagitis; I10 Essential (primary) hypertension; F20.9 Schizophrenia, unspecified; W50.0XXA Accidental hit or strike by another person, initial encounter; Y93.89 Activity, other specified; Y92.9 Unspecified place or not applicable; Y99.9 Unspecified external cause status
CPT/HCPCS: 12011; 99283; 99285

== ENCOUNTER 2017-03-14 00:47 | Inpatient (IN) | payer MEDICARE, MEDICAID ==
[~2017-03-14] VITALS: Ht 172.7 cm; Wt 95.2 kg
[~2017-03-14 00:47] MED LIST changes: -BENZ1TAB10 PO; -BUPR-93 PO; -METO-323 PO; +METO25XL PO; +OLAN10TA3 PO; -TRIL2 PO
[2017-03-14] MEDS ORDERED: GEMF600T3 PO (03:10)
[2017-03-14] MEDS ORDERED: METO25 PO (03:10)
[2017-03-14] MEDS ORDERED: CLOZ100 PO ×2 (03:10)
[2017-03-14] MEDS ORDERED: OLAN10TA3 PO (03:19)
[2017-03-14] MEDS ORDERED: AMIT50TA3 PO (03:19)
[2017-03-14 03:34] VITALS: BP 120/62
[2017-03-14] MEDS ORDERED: HALOPERIDOL 5 MG TABLET PO PRN (04:00)
[2017-03-14 04:29] VITALS: BP 109/73
[2017-03-14] MEDS ORDERED: ISON300 PO (04:55)
[2017-03-14] MEDS ORDERED: PNEUMOCOCCAL VACCINE POLYVALENT 0.5 ML VIAL [PPSV23] IM ONE (06:30)
[2017-03-14 08:02] VITALS: BP 123/60
[2017-03-14 08:39] LABS: BASOPHILS # (AUTO) 0.04 K/uL (0.00-0.20); BASOPHILS % (AUTO) 0.8 % (0.0-2.0); EOSINOPHILS # (AUTO) 0.13 K/uL (0.00-0.70); EOSINOPHILS % (AUTO) 2.37 % (1.0-6.0); HEMATOCRIT 44.4 % (41-53); HEMOGLOBIN 15.5 g/dL (13.5-17.5); LYMPHOCYTES # (AUTO) 1.6 K/uL (1.0-4.8); LYMPHOCYTES % (AUTO) 28.1 % (22.0-44.0); MEAN CORPUSCULAR HEMOGLOBIN 30.5 pg (26.0-34.0); MEAN CORPUSCULAR VOLUME 87 fL (80-100); MONOCYTES # (AUTO) 0.3 K/uL (0.1-1.0); MONOCYTES % (AUTO) 5.7 % (2.0-9.0); NEUTROPHILS # (AUTO) 3.5 K/uL (1.8-7.7); PLATELET COUNT (AUTO) 272 K/uL (150-450); RED BLOOD CELL COUNT(AUTO) 5.09 MIL/uL (4.50-5.90); RED CELL DISTRIBUTION WIDTH 13.9 % (11.5-14.5); WHITE BLOOD COUNT (AUTO) 5.5 K/uL (4.5-11.0)
[2017-03-14] MEDS: NICOTINE 21 MG/24 HOUR PATCH TD SCH (08:44)
[2017-03-14 08:52] LABS: HEMOGLOBIN A1C 6.1 % (4.5-6.2)
[2017-03-14 09:25] LABS: ALANINE AMINOTRANSFERASE 37 U/L (12-78); ALBUMIN 4.3 g/dL (3.4-5.0); ANION GAP 8 mmol/L (8-16); ASPARTATE AMINOTRANSFERASE 14 U/L (15-37); BILIRUBIN,TOTAL 0.4 mg/dL (0.1-1.0); CALCIUM, TOTAL 9.2 mg/dL (8.8-10.5); CARBON DIOXIDE 28 mmol/L (22-29); CHLORIDE 108 mmol/L (98-107); CREATININE 0.96 mg/dL (0.60-1.30); GLOMERULAR FILTR. RATE CALC > 60 mL/min (>60); POTASSIUM 5.1 mmol/L (3.5-5.1); SODIUM SERUM 144 mmol/L (136-145); THYROID STIMULATING HORMONE 1.06 uIU/mL (0.36-3.74); TOTAL PROTEIN, SERUM 7.2 g/dL (6.4-8.2); UREA NITROGEN, BLOOD 22 mg/dL (7-18)
[2017-03-14] MEDS: LORazepam 2 MG TABLET PO PRN (09:47)
[2017-03-14] MEDS: CloZAPine 100 MG TABLET PO SCH ×2 (13:06→20:32)
[2017-03-14] MEDS: OLANZapine 10 MG TABLET PO SCH ×2 (13:06→20:32)
[2017-03-14] MEDS: ISONIAZID 300 MG TABLET PO SCH (13:07)
[2017-03-14] MEDS: PYRIDOXINE HCL 50 MG TABLET PO SCH (13:07)
[2017-03-14 16:10] VITALS: BP 116/67
[2017-03-14] MEDS: DOCUSATE SODIUM 250 MG CAPSULE PO SCH (16:22)
[2017-03-14] MEDS: GEMFIBROZIL 600 MG TABLET PO SCH (16:22)
[2017-03-14] MEDS: AMITRIPTYLINE HCL 50 MG TABLET PO SCH (20:32)
[2017-03-14] MEDS: SIMVASTATIN 20 MG TABLET PO SCH (20:32)
[2017-03-15 03:39] VITALS: BP 120/60
[2017-03-15] MEDS: PANTOPRAZOLE SODIUM 40 MG DR TABLET PO SCH (06:16)
[2017-03-15] MEDS: GEMFIBROZIL 600 MG TABLET PO SCH ×2 (06:16→16:25)
[2017-03-15 08:14] VITALS: BP 121/52
[2017-03-15] MEDS: CloZAPine 100 MG TABLET PO SCH ×2 (08:39→20:05)
[2017-03-15] MEDS: PYRIDOXINE HCL 50 MG TABLET PO SCH (08:39)
[2017-03-15] MEDS: OLANZapine 10 MG TABLET PO SCH ×2 (08:39→20:05)
[2017-03-15] MEDS: NICOTINE 21 MG/24 HOUR PATCH TD SCH (08:39)
[2017-03-15] MEDS: DOCUSATE SODIUM 250 MG CAPSULE PO SCH ×2 (08:39→16:25)
[2017-03-15] MEDS: ISONIAZID 300 MG TABLET PO SCH (08:39)
[2017-03-15 08:40] VITALS: BP 104/54
[2017-03-15] MEDS: FLUTICASONE/VILANTEROL 200-25 MCG/INH INHALER [14] IH SCH (08:40)
[2017-03-15] MEDS: METOPROLOL SUCCINATE 25 MG ER TABLET PO SCH (08:44)
[2017-03-15 09:26] LABS: CHOL/HDL RATIO 4.8 (4.2-7.3); CREATINE KINASE, TOTAL 74 U/L (39-308)
[2017-03-15 16:04] VITALS: BP 137/66
[2017-03-15] MEDS: AMITRIPTYLINE HCL 50 MG TABLET PO SCH (20:05)
[2017-03-15] MEDS: SIMVASTATIN 20 MG TABLET PO SCH (20:05)
[2017-03-15] MEDS: ZOLPIDEM TARTRATE 10 MG TABLET PO PRN (21:01)
[2017-03-16 00:34] VITALS: BP 125/62
[2017-03-16] MEDS: GEMFIBROZIL 600 MG TABLET PO SCH ×2 (05:59→16:31)
[2017-03-16] MEDS: PANTOPRAZOLE SODIUM 40 MG DR TABLET PO SCH (05:59)
[2017-03-16 08:02] VITALS: BP 115/78
[2017-03-16] MEDS: NICOTINE 21 MG/24 HOUR PATCH TD SCH (08:25)
[2017-03-16] MEDS: OLANZapine 10 MG TABLET PO SCH ×2 (08:25→20:39)
[2017-03-16] MEDS: PYRIDOXINE HCL 50 MG TABLET PO SCH (08:25)
[2017-03-16] MEDS: ISONIAZID 300 MG TABLET PO SCH (08:25)
[2017-03-16] MEDS: METOPROLOL SUCCINATE 25 MG ER TABLET PO SCH (08:25)
[2017-03-16] MEDS: CloZAPine 100 MG TABLET PO SCH ×2 (08:25→20:39)
[2017-03-16] MEDS: DOCUSATE SODIUM 250 MG CAPSULE PO SCH ×2 (08:25→16:31)
[2017-03-16] MEDS: FLUTICASONE PROPIONATE 50 MCG/SPRAY 16 GM NASAL SPRAY NASAL SCH (08:28)
[2017-03-16] MEDS: FLUTICASONE/VILANTEROL 200-25 MCG/INH INHALER [14] IH SCH (08:28)
[2017-03-16 16:07] VITALS: BP 122/71
[2017-03-16] MEDS: AMITRIPTYLINE HCL 50 MG TABLET PO SCH (20:38)
[2017-03-16] MEDS: SIMVASTATIN 20 MG TABLET PO SCH (20:38)
[2017-03-17] MEDS: GEMFIBROZIL 600 MG TABLET PO SCH ×2 (06:01→16:31)
[2017-03-17] MEDS: PANTOPRAZOLE SODIUM 40 MG DR TABLET PO SCH (06:16)
[2017-03-17 06:53] VITALS: BP 106/72
[2017-03-17 08:48] VITALS: BP 104/69
[2017-03-17] MEDS: METOPROLOL SUCCINATE 25 MG ER TABLET PO SCH (09:00)
[2017-03-17] MEDS: ISONIAZID 300 MG TABLET PO SCH (09:02)
[2017-03-17] MEDS: OLANZapine 10 MG TABLET PO SCH ×2 (09:02→21:04)
[2017-03-17] MEDS: CloZAPine 100 MG TABLET PO SCH ×2 (09:02→21:05)
[2017-03-17] MEDS: PYRIDOXINE HCL 50 MG TABLET PO SCH (09:02)
[2017-03-17] MEDS: DOCUSATE SODIUM 250 MG CAPSULE PO SCH ×2 (09:02→16:31)
[2017-03-17] MEDS: NICOTINE 21 MG/24 HOUR PATCH TD SCH (09:03)
[2017-03-17] MEDS: FLUTICASONE/VILANTEROL 200-25 MCG/INH INHALER [14] IH SCH (09:05)
[2017-03-17] MEDS: FLUTICASONE PROPIONATE 50 MCG/SPRAY 16 GM NASAL SPRAY NASAL SCH (09:05)
[2017-03-17 16:28] VITALS: BP 125/64
[2017-03-17] MEDS: SIMVASTATIN 20 MG TABLET PO SCH (21:04)
[2017-03-17] MEDS: AMITRIPTYLINE HCL 50 MG TABLET PO SCH (21:04)
[2017-03-18 00:38] VITALS: BP 115/72
[2017-03-18] MEDS: GEMFIBROZIL 600 MG TABLET PO SCH ×2 (05:39→16:36)
[2017-03-18] MEDS: PANTOPRAZOLE SODIUM 40 MG DR TABLET PO SCH (05:39)
[2017-03-18 08:32] VITALS: BP 100/73
[2017-03-18 09:00] VITALS: BP 110/78
[2017-03-18] MEDS: FLUTICASONE/VILANTEROL 200-25 MCG/INH INHALER [14] IH SCH (09:03)
[2017-03-18] MEDS: ISONIAZID 300 MG TABLET PO SCH (09:04)
[2017-03-18] MEDS: PYRIDOXINE HCL 50 MG TABLET PO SCH (09:04)
[2017-03-18] MEDS: OLANZapine 10 MG TABLET PO SCH ×2 (09:04→20:41)
[2017-03-18] MEDS: DOCUSATE SODIUM 250 MG CAPSULE PO SCH ×2 (09:04→16:36)
[2017-03-18] MEDS: CloZAPine 100 MG TABLET PO SCH ×2 (09:04→20:42)
[2017-03-18] MEDS: NICOTINE 21 MG/24 HOUR PATCH TD SCH (09:08)
[2017-03-18] MEDS: FLUTICASONE PROPIONATE 50 MCG/SPRAY 16 GM NASAL SPRAY NASAL SCH (09:08)
[2017-03-18] MEDS: METOPROLOL SUCCINATE 25 MG ER TABLET PO SCH (09:08)
[2017-03-18 16:14] VITALS: BP 121/63
[2017-03-18] MEDS: SIMVASTATIN 20 MG TABLET PO SCH (20:41)
[2017-03-18] MEDS: AMITRIPTYLINE HCL 50 MG TABLET PO SCH (20:41)
[2017-03-18] MEDS: ZOLPIDEM TARTRATE 10 MG TABLET PO PRN (22:29)
[2017-03-18] MEDS ORDERED: ACETAMINOPHEN 325 MG TABLET PO PRN (22:30)
[2017-03-18] MEDS ORDERED: IBUPROFEN 600 MG TABLET PO PRN (22:30)
[2017-03-19] MEDS: PANTOPRAZOLE SODIUM 40 MG DR TABLET PO SCH (06:14)
[2017-03-19] MEDS: GEMFIBROZIL 600 MG TABLET PO SCH ×2 (06:14→16:25)
[2017-03-19 06:32] VITALS: BP 119/80
[2017-03-19 08:16] VITALS: BP 109/67
[2017-03-19] MEDS: ISONIAZID 300 MG TABLET PO SCH (08:49)
[2017-03-19] MEDS: PYRIDOXINE HCL 50 MG TABLET PO SCH (08:49)
[2017-03-19] MEDS: DOCUSATE SODIUM 250 MG CAPSULE PO SCH ×2 (08:50→16:25)
[2017-03-19] MEDS: CloZAPine 100 MG TABLET PO SCH ×2 (08:50→20:35)
[2017-03-19] MEDS: OLANZapine 10 MG TABLET PO SCH ×2 (08:50→20:34)
[2017-03-19] MEDS: METOPROLOL SUCCINATE 25 MG ER TABLET PO SCH (08:50)
[2017-03-19] MEDS: NICOTINE 21 MG/24 HOUR PATCH TD SCH (08:51)
[2017-03-19] MEDS: FLUTICASONE PROPIONATE 50 MCG/SPRAY 16 GM NASAL SPRAY NASAL SCH (08:52)
[2017-03-19] MEDS: FLUTICASONE/VILANTEROL 200-25 MCG/INH INHALER [14] IH SCH (08:52)
[2017-03-19 16:18] VITALS: BP 110/72
[2017-03-19] MEDS: SIMVASTATIN 20 MG TABLET PO SCH (20:34)
[2017-03-19] MEDS: AMITRIPTYLINE HCL 50 MG TABLET PO SCH (20:34)
[2017-03-20 05:49] VITALS: BP 109/81
[2017-03-20] MEDS: GEMFIBROZIL 600 MG TABLET PO SCH ×2 (06:31→16:37)
[2017-03-20] MEDS: PANTOPRAZOLE SODIUM 40 MG DR TABLET PO SCH (06:32)
[2017-03-20 08:35] VITALS: BP 117/79
[2017-03-20] MEDS: FLUTICASONE/VILANTEROL 200-25 MCG/INH INHALER [14] IH SCH (08:44)
[2017-03-20] MEDS: FLUTICASONE PROPIONATE 50 MCG/SPRAY 16 GM NASAL SPRAY NASAL SCH (08:44)
[2017-03-20] MEDS: CloZAPine 100 MG TABLET PO SCH ×2 (08:45→20:39)
[2017-03-20] MEDS: METOPROLOL SUCCINATE 25 MG ER TABLET PO SCH (08:45)
[2017-03-20] MEDS: DOCUSATE SODIUM 250 MG CAPSULE PO SCH ×2 (08:45→16:37)
[2017-03-20] MEDS: ISONIAZID 300 MG TABLET PO SCH (08:45)
[2017-03-20] MEDS: OLANZapine 10 MG TABLET PO SCH ×2 (08:46→20:39)
[2017-03-20] MEDS: PYRIDOXINE HCL 50 MG TABLET PO SCH (08:46)
[2017-03-20] MEDS: NICOTINE 21 MG/24 HOUR PATCH TD SCH (08:51)
[2017-03-20 16:20] VITALS: BP 116/73
[2017-03-20] MEDS: AMITRIPTYLINE HCL 50 MG TABLET PO SCH (20:39)
[2017-03-20] MEDS: SIMVASTATIN 20 MG TABLET PO SCH (20:39)
[2017-03-21 01:38] VITALS: BP 123/75
[2017-03-21] MEDS: GEMFIBROZIL 600 MG TABLET PO SCH ×2 (06:21→16:42)
[2017-03-21] MEDS: PANTOPRAZOLE SODIUM 40 MG DR TABLET PO SCH (06:21)
[2017-03-21 08:09] LABS: BASOPHILS # (AUTO) 0.03 K/uL (0.00-0.20); BASOPHILS % (AUTO) 0.4 % (0.0-2.0); EOSINOPHILS # (AUTO) 0.16 K/uL (0.00-0.70); EOSINOPHILS % (AUTO) 2.26 % (1.0-6.0); HEMATOCRIT 46.7 % (41-53); HEMOGLOBIN 15.8 g/dL (13.5-17.5); LYMPHOCYTES # (AUTO) 2.6 K/uL (1.0-4.8); LYMPHOCYTES % (AUTO) 36.6 % (22.0-44.0); MEAN CORPUSCULAR HEMOGLOBIN 30.2 pg (26.0-34.0); MEAN CORPUSCULAR HGB CONC 33.9 G/dL (31.0-37.0); MEAN CORPUSCULAR VOLUME 89 fL (80-100); MONOCYTES # (AUTO) 0.5 K/uL (0.1-1.0); MONOCYTES % (AUTO) 6.5 % (2.0-9.0); NEUTROPHILS # (AUTO) 3.8 K/uL (1.8-7.7); NEUTROPHILS % (AUTO) 54.2 % (40.0-70.0); PLATELET COUNT (AUTO) 313 K/uL (150-450); RED BLOOD CELL COUNT(AUTO) 5.25 MIL/uL (4.50-5.90); RED CELL DISTRIBUTION WIDTH 13.9 % (11.5-14.5)
[2017-03-21] MEDS: FLUTICASONE/VILANTEROL 200-25 MCG/INH INHALER [14] IH SCH (08:11)
[2017-03-21] MEDS: FLUTICASONE PROPIONATE 50 MCG/SPRAY 16 GM NASAL SPRAY NASAL SCH (08:12)
[2017-03-21] MEDS: CloZAPine 100 MG TABLET PO SCH ×2 (08:12→20:48)
[2017-03-21] MEDS: ISONIAZID 300 MG TABLET PO SCH (08:12)
[2017-03-21] MEDS: DOCUSATE SODIUM 250 MG CAPSULE PO SCH ×2 (08:12→16:42)
[2017-03-21] MEDS: PYRIDOXINE HCL 50 MG TABLET PO SCH (08:12)
[2017-03-21] MEDS: METOPROLOL SUCCINATE 25 MG ER TABLET PO SCH (08:12)
[2017-03-21] MEDS: OLANZapine 10 MG TABLET PO SCH ×2 (08:12→20:49)
[2017-03-21] MEDS: NICOTINE 21 MG/24 HOUR PATCH TD SCH (08:12)
[2017-03-21 08:30] VITALS: BP 117/78
[2017-03-21 16:09] VITALS: BP 126/85
[2017-03-21] MEDS: SIMVASTATIN 20 MG TABLET PO SCH (20:48)
[2017-03-21] MEDS: AMITRIPTYLINE HCL 50 MG TABLET PO SCH (20:52)
[2017-03-22 00:08] VITALS: BP 126/70
[2017-03-22] MEDS: PANTOPRAZOLE SODIUM 40 MG DR TABLET PO SCH (07:05)
[2017-03-22] MEDS: GEMFIBROZIL 600 MG TABLET PO SCH ×2 (07:06→16:42)
[2017-03-22 08:29] VITALS: BP 101/71
[2017-03-22] MEDS: CloZAPine 100 MG TABLET PO SCH ×2 (08:46→20:40)
[2017-03-22] MEDS: PYRIDOXINE HCL 50 MG TABLET PO SCH (08:46)
[2017-03-22] MEDS: ISONIAZID 300 MG TABLET PO SCH (08:46)
[2017-03-22] MEDS: DOCUSATE SODIUM 250 MG CAPSULE PO SCH ×2 (08:46→16:42)
[2017-03-22] MEDS: METOPROLOL SUCCINATE 25 MG ER TABLET PO SCH (08:47)
[2017-03-22] MEDS: NICOTINE 21 MG/24 HOUR PATCH TD SCH (08:47)
[2017-03-22] MEDS: OLANZapine 10 MG TABLET PO SCH ×2 (08:47→20:40)
[2017-03-22] MEDS: FLUTICASONE/VILANTEROL 200-25 MCG/INH INHALER [14] IH SCH (08:49)
[2017-03-22] MEDS: FLUTICASONE PROPIONATE 50 MCG/SPRAY 16 GM NASAL SPRAY NASAL SCH (08:49)
[2017-03-22 16:09] VITALS: BP 127/74
[2017-03-22] MEDS: AMITRIPTYLINE HCL 50 MG TABLET PO SCH (20:40)
[2017-03-22] MEDS: SIMVASTATIN 20 MG TABLET PO SCH (20:40)
[2017-03-23 00:41] VITALS: BP 126/83
[2017-03-23] MEDS: PANTOPRAZOLE SODIUM 40 MG DR TABLET PO SCH (06:34)
[2017-03-23] MEDS: GEMFIBROZIL 600 MG TABLET PO SCH ×2 (06:34→16:29)
[2017-03-23] MEDS: FLUTICASONE/VILANTEROL 200-25 MCG/INH INHALER [14] IH SCH (08:27)
[2017-03-23] MEDS: OLANZapine 10 MG TABLET PO SCH ×2 (08:27→20:08)
[2017-03-23] MEDS: NICOTINE 21 MG/24 HOUR PATCH TD SCH (08:27)
[2017-03-23] MEDS: FLUTICASONE PROPIONATE 50 MCG/SPRAY 16 GM NASAL SPRAY NASAL SCH (08:27)
[2017-03-23] MEDS: PYRIDOXINE HCL 50 MG TABLET PO SCH (08:27)
[2017-03-23] MEDS: DOCUSATE SODIUM 250 MG CAPSULE PO SCH ×2 (08:28→16:29)
[2017-03-23] MEDS: CloZAPine 100 MG TABLET PO SCH ×2 (08:28→20:08)
[2017-03-23] MEDS: METOPROLOL SUCCINATE 25 MG ER TABLET PO SCH (08:39)
[2017-03-23 08:59] VITALS: BP 122/66
[2017-03-23] MEDS: ISONIAZID 300 MG TABLET PO SCH (15:46)
[2017-03-23 16:24] VITALS: BP 131/68
[2017-03-23] MEDS: SIMVASTATIN 20 MG TABLET PO SCH (20:08)
[2017-03-23] MEDS: AMITRIPTYLINE HCL 50 MG TABLET PO SCH (20:08)
[2017-03-23] MEDS: LORazepam 2 MG TABLET PO PRN (22:17)
[2017-03-24 01:50] VITALS: BP 110/66
[2017-03-24] MEDS: ZOLPIDEM TARTRATE 10 MG TABLET PO PRN (01:51)
[2017-03-24] MEDS: PANTOPRAZOLE SODIUM 40 MG DR TABLET PO SCH (06:36)
[2017-03-24] MEDS: GEMFIBROZIL 600 MG TABLET PO SCH ×2 (06:36→16:40)
[2017-03-24 08:14] VITALS: BP 117/69
[2017-03-24] MEDS: DOCUSATE SODIUM 250 MG CAPSULE PO SCH ×2 (08:21→16:40)
[2017-03-24] MEDS: ISONIAZID 300 MG TABLET PO SCH (08:21)
[2017-03-24] MEDS: OLANZapine 10 MG TABLET PO SCH ×2 (08:21→20:41)
[2017-03-24] MEDS: PYRIDOXINE HCL 50 MG TABLET PO SCH (08:21)
[2017-03-24] MEDS: METOPROLOL SUCCINATE 25 MG ER TABLET PO SCH (08:22)
[2017-03-24] MEDS: CloZAPine 100 MG TABLET PO SCH ×2 (08:22→20:41)
[2017-03-24] MEDS: NICOTINE 21 MG/24 HOUR PATCH TD SCH (08:23)
[2017-03-24] MEDS: FLUTICASONE PROPIONATE 50 MCG/SPRAY 16 GM NASAL SPRAY NASAL SCH (08:24)
[2017-03-24] MEDS: FLUTICASONE/VILANTEROL 200-25 MCG/INH INHALER [14] IH SCH (08:24)
[2017-03-24] MEDS: LORazepam 2 MG TABLET PO PRN ×2 (08:27→13:28)
[2017-03-24 16:46] VITALS: BP 106/64
[2017-03-24] MEDS: SIMVASTATIN 20 MG TABLET PO SCH (20:41)
[2017-03-24] MEDS: AMITRIPTYLINE HCL 50 MG TABLET PO SCH (20:41)
[2017-03-25] MEDS: GEMFIBROZIL 600 MG TABLET PO SCH ×2 (06:25→17:05)
[2017-03-25] MEDS: PANTOPRAZOLE SODIUM 40 MG DR TABLET PO SCH (06:25)
[2017-03-25 06:38] VITALS: BP 125/93
[2017-03-25] MEDS: NICOTINE 21 MG/24 HOUR PATCH TD SCH (09:24)
[2017-03-25] MEDS: ISONIAZID 300 MG TABLET PO SCH (09:24)
[2017-03-25] MEDS: PYRIDOXINE HCL 50 MG TABLET PO SCH (09:24)
[2017-03-25] MEDS: OLANZapine 10 MG TABLET PO SCH ×2 (09:24→20:36)
[2017-03-25] MEDS: DOCUSATE SODIUM 250 MG CAPSULE PO SCH ×2 (09:24→17:05)
[2017-03-25] MEDS: CloZAPine 100 MG TABLET PO SCH ×2 (09:24→20:35)
[2017-03-25] MEDS: METOPROLOL SUCCINATE 25 MG ER TABLET PO SCH (09:24)
[2017-03-25] MEDS: FLUTICASONE PROPIONATE 50 MCG/SPRAY 16 GM NASAL SPRAY NASAL SCH (09:26)
[2017-03-25] MEDS: FLUTICASONE/VILANTEROL 200-25 MCG/INH INHALER [14] IH SCH (09:26)
[2017-03-25 09:41] VITALS: BP 115/72
[2017-03-25 16:16] VITALS: BP 115/82
[2017-03-25] MEDS: AMITRIPTYLINE HCL 50 MG TABLET PO SCH (20:35)
[2017-03-25] MEDS: SIMVASTATIN 20 MG TABLET PO SCH (20:36)
[2017-03-26 00:15] VITALS: BP 114/76
[2017-03-26] MEDS: GEMFIBROZIL 600 MG TABLET PO SCH ×2 (06:35→16:43)
[2017-03-26] MEDS: PANTOPRAZOLE SODIUM 40 MG DR TABLET PO SCH (06:35)
[2017-03-26 08:00] VITALS: BP 108/75
[2017-03-26] MEDS: NICOTINE 21 MG/24 HOUR PATCH TD SCH (08:22)
[2017-03-26] MEDS: OLANZapine 10 MG TABLET PO SCH ×2 (08:22→20:37)
[2017-03-26] MEDS: PYRIDOXINE HCL 50 MG TABLET PO SCH (08:22)
[2017-03-26] MEDS: FLUTICASONE PROPIONATE 50 MCG/SPRAY 16 GM NASAL SPRAY NASAL SCH (08:23)
[2017-03-26] MEDS: METOPROLOL SUCCINATE 25 MG ER TABLET PO SCH (08:23)
[2017-03-26] MEDS: ISONIAZID 300 MG TABLET PO SCH (08:23)
[2017-03-26] MEDS: DOCUSATE SODIUM 250 MG CAPSULE PO SCH ×2 (08:23→16:43)
[2017-03-26] MEDS: CloZAPine 100 MG TABLET PO SCH ×2 (08:23→20:36)
[2017-03-26] MEDS: FLUTICASONE/VILANTEROL 200-25 MCG/INH INHALER [14] IH SCH (08:24)
[2017-03-26 16:08] VITALS: BP 120/77
[2017-03-26] MEDS: SIMVASTATIN 20 MG TABLET PO SCH (20:36)
[2017-03-26] MEDS: AMITRIPTYLINE HCL 50 MG TABLET PO SCH (20:36)
[2017-03-27 02:30] VITALS: BP 106/63
[2017-03-27] MEDS: GEMFIBROZIL 600 MG TABLET PO SCH ×2 (07:00→16:27)
[2017-03-27] MEDS: PANTOPRAZOLE SODIUM 40 MG DR TABLET PO SCH (07:01)
[2017-03-27 08:25] VITALS: BP 129/74
[2017-03-27] MEDS ORDERED: BISACODYL 5 MG EC TABLET PO PRN (08:45)
[2017-03-27] MEDS: DOCUSATE SODIUM 250 MG CAPSULE PO SCH ×2 (08:57→16:26)
[2017-03-27] MEDS: PYRIDOXINE HCL 50 MG TABLET PO SCH (08:57)
[2017-03-27] MEDS: METOPROLOL SUCCINATE 25 MG ER TABLET PO SCH (08:57)
[2017-03-27] MEDS: CloZAPine 100 MG TABLET PO SCH ×2 (08:57→20:23)
[2017-03-27] MEDS: ISONIAZID 300 MG TABLET PO SCH (08:57)
[2017-03-27] MEDS: OLANZapine 10 MG TABLET PO SCH ×2 (08:57→20:24)
[2017-03-27] MEDS: NICOTINE 21 MG/24 HOUR PATCH TD SCH (08:58)
[2017-03-27] MEDS: FLUTICASONE/VILANTEROL 200-25 MCG/INH INHALER [14] IH SCH (08:59)
[2017-03-27] MEDS: FLUTICASONE PROPIONATE 50 MCG/SPRAY 16 GM NASAL SPRAY NASAL SCH (08:59)
[2017-03-27 16:18] VITALS: BP 118/75
[2017-03-27] MEDS: AMITRIPTYLINE HCL 50 MG TABLET PO SCH (20:23)
[2017-03-27] MEDS: SIMVASTATIN 20 MG TABLET PO SCH (20:24)
[2017-03-28 01:16] VITALS: BP 110/69
[2017-03-28] MEDS: GEMFIBROZIL 600 MG TABLET PO SCH ×2 (06:42→16:39)
[2017-03-28] MEDS: PANTOPRAZOLE SODIUM 40 MG DR TABLET PO SCH (06:42)
[2017-03-28 08:19] VITALS: BP 124/77
[2017-03-28] MEDS: DOCUSATE SODIUM 250 MG CAPSULE PO SCH ×2 (08:49→16:39)
[2017-03-28] MEDS: ISONIAZID 300 MG TABLET PO SCH (08:49)
[2017-03-28] MEDS: METOPROLOL SUCCINATE 25 MG ER TABLET PO SCH (08:49)
[2017-03-28] MEDS: CloZAPine 100 MG TABLET PO SCH (08:49)
[2017-03-28] MEDS: OLANZapine 10 MG TABLET PO SCH (08:49)
[2017-03-28] MEDS: PYRIDOXINE HCL 50 MG TABLET PO SCH (08:49)
[2017-03-28] MEDS: NICOTINE 21 MG/24 HOUR PATCH TD SCH (08:50)
[2017-03-28] MEDS: FLUTICASONE PROPIONATE 50 MCG/SPRAY 16 GM NASAL SPRAY NASAL SCH (08:52)
[2017-03-28] MEDS: FLUTICASONE/VILANTEROL 200-25 MCG/INH INHALER [14] IH SCH (08:52)
[2017-03-28] MEDS ORDERED: FLUT16H NASAL (10:18)
[2017-03-28] MEDS ORDERED: PYRI25TA3 PO (10:22)
== END 2017-03-28 18:05 | disposition home or self-care (01) | DRG 885 ==
LOC: B2X 03:55 → EDSTATUS 04:06 → B2X 03-16 18:15
PROVIDERS: ADMIT Psychiatry & Neurology Psychiatry; ATTEND Psychiatry & Neurology Child & Adolescent Psychiatry
PROC: 3E0234Z Introduction of Serum, Toxoid and Vaccine into Muscle, Percutaneous Approach (ICD-10-PCS; principal; 2017-03-14)
DX: F25.1 Schizoaffective disorder, depressive type (principal); I10 Essential (primary) hypertension; E78.1 Pure hyperglyceridemia; E78.5 Hyperlipidemia, unspecified; J30.9 Allergic rhinitis, unspecified; J44.9 Chronic obstructive pulmonary disease, unspecified; K21.9 Gastro-esophageal reflux disease without esophagitis; K59.00 Constipation, unspecified; R76.11 Nonspecific reaction to tuberculin skin test without active tuberculosis; Z72.0 Tobacco use; G89.29 Other chronic pain; Z23 Encounter for immunization
CPT/HCPCS: 83036; 84439; 84443; 87081; 90471

== ENCOUNTER 2018-02-01 09:04 | Emergency (ER) | payer MEDICARE, OTHER ==
[~2018-02-01] VITALS: Ht 185.4 cm; Wt 104.5 kg
[~2018-02-01 09:04] MED LIST changes: +AMIT50TA3 PO; +CLOZ100 PO; +FLUT16H NASAL; +GEMF600T5 PO; +ISON300 PO; +PYRI25TA3 PO
[2018-02-01 11:12] VITALS: BP 126/75
== END 2018-02-01 11:31 | disposition home or self-care (01) ==
LOC: EMS 09:05
DX: S50.12XA Contusion of left forearm, initial encounter (principal); I10 Essential (primary) hypertension; J44.9 Chronic obstructive pulmonary disease, unspecified; K21.9 Gastro-esophageal reflux disease without esophagitis; F17.210 Nicotine dependence, cigarettes, uncomplicated; Y04.0XXA Assault by unarmed brawl or fight, initial encounter; Y93.89 Activity, other specified; Y92.89 Other specified places as the place of occurrence of the external cause; Y99.8 Other external cause status
CPT/HCPCS: 99284

== ENCOUNTER 2018-04-21 17:23 | Emergency (ER) | payer MEDICARE, OTHER | END 2018-04-21 18:34 | disposition left against medical advice (07) | LOC: EMS 17:24 | DX: Z00.8 Encounter for other general examination (principal); Z53.21 Procedure and treatment not carried out due to patient leaving prior to being seen by health care provider ==